=== PATIENT | male | born 1960 | race Caucasian/White ===

== ENCOUNTER 2019-07-11 21:12 | Observation (INO) ==
[2019-07-11] MEDS ORDERED: levoFLOXacin 750 MG/150 ML 750 MG/150 ML BAG IVPB ONE (21:34)
[2019-07-11] MEDS ORDERED: cefTRIAXone 1,000 MG in Water for inj. (sterile) 10 ML IVP ONE (21:34)
[2019-07-11 21:46] LABS: Basophils # 0.1 K/mcL (0.0-0.2); Basophils % 0.5 %; Eosinophils # 0.1 K/mcL (0.0-0.6); Eosinophils % 0.5 %; Hemoglobin 18.7 g/dL (12.9-16.9); Immature Granulocytes % 1.6 % (0-4); Lymphocytes % 10.1 %; Mean Corpuscular HGB Conc 35.3 g/dL (31.6-35.5); Mean Corpuscular Hemoglobin 32.1 pg (28.0-33.3); Mean Corpuscular Volume 90.9 fL (83.0-100.0); Mean Platelet Volume 10.4 fL (9.4-12.4); Monocytes # 1.3 K/mcL (0.0-1.3); Monocytes % 8.6 %; Platelet Count 264 K/mcL (140-400); Red Blood Count 5.83 M/mcL (4.19-5.50); Red Cell Distribution Width 13.4 % (11.5-14.5); Segmented Neutrophils % 78.7 %; White Blood Count 15.3 K/mcL (4.3-11.1)
[2019-07-11 21:48] LABS: Lymphocytes # 1.6 K/mcL (0.6-4.6)
[2019-07-11 21:51] LABS: INR 1.1; Prothrombin Time 12.4 Seconds (9.4-12.1)
[2019-07-11 21:54] LABS: Activated Partial Thrombo Time 28.6 Seconds (26.0-36.0)
[2019-07-11] MEDS ORDERED: Isovue-370 500 ML BOTTLE IVP ONE (21:59)
[2019-07-11 22:12] LABS: BUN/Creatinine Ratio 18 (6-26); Blood Urea Nitrogen 16 mg/dL (8-23); Calcium 9.7 mg/dL (8.6-10.3); Carbon Dioxide 26 mEq/L (23-29); Chloride 97 mEq/L (98-107); Glucose 236 mg/dL (70-105); Magnesium 1.4 mg/dL (1.6-2.6); Osmolality,Calculated 293 (280-300); Phosphorous 2.8 mg/dL (2.7-4.5); Potassium 4.4 mEq/L (3.5-5.1); Sodium 137 mEq/L (136-145); Troponin I 0.09 ng/mL (< 0.04); eGFR For African Americans > 60 (> 60); eGFR For Non-African Americans > 60 (> 60)
[2019-07-11] MEDS: 0.9 % Sodium Chloride 1,000 ML IVC SCH ×2 (22:12→23:00)
[2019-07-11 22:14] LABS: Bilirubin,Urine Small (Negative); Blood,Urine Negative (Negative); Clarity,Urine Clear (Clear); Color,Urine Dark Yellow (Yellow); Glucose,Urine (UA) 500 mg/dL (Normal); Ketones,Urine 15 mg/dL (Negative); Leukocyte Esterase,Urine Negative (Negative); Nitrite,Urine Negative (Negative); PH,Urine 7.5 pH Units (5.0-8.0); Protein,Urine 100 mg/dL (Neg-Trace); Specific Gravity,Urine > 1.030 (1.010-1.025); Urobilinogen,Urine Normal (Normal)
[2019-07-11 22:24] LABS: Hyaline Casts,Urine None Seen per lpf (None-Few); Mucus,Urine Many (Few); RBC,Urine 0-3 per hpf (0-3); Renal Epithelial Cells,Urine Few per hpf (None-Few); Squamous Epithelial Cell,Urine Few per lpf (None-Few); WBC,Urine 0-3 per hpf (0-3)
[2019-07-11 22:25] LABS: Bacteria,Urine None Seen per hpf (None-Few)
[2019-07-11] MEDS ORDERED: Aspirin 81 MG TAB.CHEW PO ONE (22:43)
[2019-07-11 23:19] LABS: VBG HCO3 26 mEq/L (21-27); VBG PCO2 39 mmHg (41-51); VBG PH 7.44 pH Units (7.32-7.42); VBG PO2 159 mmHg (25-50)
[2019-07-11] MEDS ORDERED: *HR* Heparin 5,000 UNIT/ML VIAL IVP ONE (23:25)
[2019-07-11] MEDS ORDERED: *HR* Heparin 5,000 UNIT/ML VIAL IVP PRN (23:25)
[2019-07-11] MEDS ORDERED: 0.9 % Sodium Chloride 500 ML IVC ONE (23:41)
[2019-07-11] MEDS: Heparin 25,000 UNIT/250 ML D5W 25,000 UNIT/250 ML IV.SOLN IVC SCH (23:55)
[2019-07-12 00:11] LABS: INR 1.2
[2019-07-12 00:21] LABS: Hematocrit 41.9 % (37.5-50.1); Mean Corpuscular HGB Conc 35.3 g/dL (31.6-35.5); Mean Corpuscular Hemoglobin 32.5 pg (28.0-33.3); Mean Corpuscular Volume 92.1 fL (83.0-100.0); Mean Platelet Volume 10.4 fL (9.4-12.4); Platelet Count 178 K/mcL (140-400); Red Blood Count 4.55 M/mcL (4.19-5.50); Red Cell Distribution Width 13.2 % (11.5-14.5); White Blood Count 10.8 K/mcL (4.3-11.1)
[2019-07-12 00:23] LABS: Hemoglobin 14.8 g/dL (12.9-16.9)
[2019-07-12] MEDS: rOPINIRole 1 MG TABLET PO SCH ×2 (00:47→21:46)
[2019-07-12] MEDS ORDERED: Naloxone 0.4 MG/ML INJ IVP PRN (01:30)
[2019-07-12] MEDS ORDERED: Colchicine 0.6 MG TABLET PO PRN (01:34)
[2019-07-12] MEDS ORDERED: Dextrose Gel 15 GM/37.5 ML TUBE PO PRN ×4 (03:45→17:51)
[2019-07-12] MEDS ORDERED: D5% in Water 1,000 ML IVC PRN ×2 (03:45→17:51)
[2019-07-12] MEDS ORDERED: *HR* Dextrose 50 % in Water (Syg) 50 ML SYRINGE IVP PRN ×2 (03:45→17:51)
[2019-07-12] MEDS: Ipratropium/Albuterol Neb 3 ML IH SCH ×5 (04:04→20:35)
[2019-07-12] MEDS: Insulin LISPRO 300 UNITS/3 ML VIAL SQ SCH ×2 (05:49→12:42)
[2019-07-12] MEDS ORDERED: Acetaminophen 325 MG TABLET PO ONE (07:01)
[2019-07-12] MEDS: Pregabalin 75 MG CAPSULE PO SCH ×2 (08:43→21:46)
[2019-07-12] MEDS: predniSONE 20 MG TABLET PO SCH (08:43)
[2019-07-12 09:07] LABS: Adenovirus Not Detected (Not Detect); Bordetella Pertussis Not Detected (Not Detect); Chlamydophila pneumoniae Not Detected (Not Detect); Coronavirus 229E Not Detected (Not Detect); Coronavirus HKU1 Not Detected (Not Detect); Coronavirus NL63 Not Detected (Not Detect); Coronavirus OC43 Not Detected (Not Detect); Human Metapneumovirus Not Detected (Not Detect); Human Rhinovirus/Enterovirus Not Detected (Not Detect); Influenza A Subtype 2009 H1 Not Detected (Not Detect); Influenza A Untypeable Not Detected (Not Detect); Influenza B Not Detected (Not Detect); Mycoplasma pneumoniae Not Detected (Not Detect); Parainfluenza Virus 1 Not Detected (Not Detect); Parainfluenza Virus 2 Not Detected (Not Detect); Parainfluenza Virus 3 Not Detected (Not Detect); Parainfluenza Virus 4 Not Detected (Not Detect); Respiratory Syncytial Virus Not Detected (Not Detect)
[2019-07-12] MEDS ORDERED: levoFLOXacin 750 MG/150 ML 750 MG/150 ML BAG IVPB SCH (18:00)
[2019-07-12] MEDS ORDERED: Insulin LISPRO 300 UNITS/3 ML VIAL SQ ONE ×2 (19:05→21:45)
[2019-07-12] MEDS: *HR* Heparin 5,000 UNIT/ML VIAL IVP PRN (19:37)
[2019-07-12] MEDS: Heparin 25,000 UNIT/250 ML D5W 25,000 UNIT/250 ML IV.SOLN IVC SCH (22:41)
[2019-07-13] MEDS: Ipratropium/Albuterol Neb 3 ML IH SCH ×4 (00:21→11:29)
[2019-07-13 01:29] LABS: Basophils % 0.4 %; Eosinophils # 0.2 K/mcL (0.0-0.6); Eosinophils % 1.8 %; Hematocrit 41.6 % (37.5-50.1); Hemoglobin 14.6 g/dL (12.9-16.9); Immature Granulocytes % 1.4 % (0-4); Lymphocytes # 1.8 K/mcL (0.6-4.6); Lymphocytes % 19.2 %; Mean Corpuscular HGB Conc 35.1 g/dL (31.6-35.5); Mean Corpuscular Hemoglobin 32.9 pg (28.0-33.3); Mean Corpuscular Volume 93.7 fL (83.0-100.0); Mean Platelet Volume 10.2 fL (9.4-12.4); Monocytes # 0.7 K/mcL (0.0-1.3); Monocytes % 7.8 %; Neutrophils # 6.3 K/mcL (1.6-8.9); Platelet Count 181 K/mcL (140-400); Red Blood Count 4.44 M/mcL (4.19-5.50); Segmented Neutrophils % 69.4 %; White Blood Count 9.1 K/mcL (4.3-11.1)
[2019-07-13 01:47] LABS: BUN/Creatinine Ratio 26 (6-26); Blood Urea Nitrogen 17 mg/dL (8-23); Calcium 8.9 mg/dL (8.6-10.3); Carbon Dioxide 26 mEq/L (23-29); Chloride 103 mEq/L (98-107); Glucose 113 mg/dL (70-105); Magnesium 1.7 mg/dL (1.6-2.6); Osmolality,Calculated 288 (280-300); Potassium 3.7 mEq/L (3.5-5.1); Sodium 138 mEq/L (136-145); eGFR For African Americans > 60 (> 60); eGFR For Non-African Americans > 60 (> 60)
[2019-07-13] MEDS: *HR* Heparin 5,000 UNIT/ML VIAL IVP PRN (02:07)
[2019-07-13 07:39] VITALS: BP 113/65
[2019-07-13] MEDS: Pregabalin 75 MG CAPSULE PO SCH (08:14)
[2019-07-13] MEDS: predniSONE 20 MG TABLET PO SCH (08:14)
[2019-07-13 08:15] LABS: Estimated Average Glucose 252 mg/dl
[2019-07-13] MEDS: Insulin LISPRO 300 UNITS/3 ML VIAL SQ SCH ×2 (08:15→12:11)
[2019-07-13] MEDS ORDERED: Insulin DETEMIR 100 UNIT/ML X5UNITS SQ SCH (09:00)
[2019-07-17 17:04] LABS: FACV Specimen WHOLE BLOOD
[2019-07-18 11:17] LABS: Fac V Leiden R506Q Mut Result NEGATIVE
== END 2019-07-13 14:19 | disposition home or self-care (01) ==
LOC: 2NENU 21:12 → EMEROOARM 21:12 → SUATTDRO 07-12 01:07 → 2NENU 07-12 01:35
PROVIDERS: ADMIT Internal Medicine; ATTEND Pharmacist